=== PATIENT | female | born 1945 | race Asian ===

== ENCOUNTER → 2018-03-27 14:06 | Outpatient (CLI) | payer OTHER, SELFPAY ==
--- NOTE | 2018-03-27 14:07 | DI.RAD.S_ITS ---
PROCEDURE: XR CERVICAL SPINE 2V OR 3V INDICATIONS: left radiculopathy TECHNIQUE: 3 view(s) of the cervical spine were acquired. COMPARISON: None. FINDINGS: Bones: No fractures or dislocations to the T1 level. The lateral masses of C1 appear intact on the odontoid view. No suspicious bony lesions. The disc heights are well-preserved. Minimal endplate irregularity is seen. Soft tissues: No prevertebral soft tissue swelling. The visualized lung apices are unremarkable. IMPRESSION: Unremarkable imaging examination for age. Dictated by: William Luna M.D. on 03/27/2018 at 14:33 Approved by: William Luna M.D. on 03/27/2018 at 14:34
== END ==
PROVIDERS: PCP Family Medicine; Visit Provider Family Medicine
DX: M54.12 Radiculopathy, cervical region (principal)
CPT/HCPCS: 72040

== ENCOUNTER 2018-08-01 08:15 | Day surgery (SDC) | payer OTHER, SELFPAY ==
--- NOTE | 2018-08-01 | PATH_ITS ---
[facility] Accession Number: [id number] . 01 Material submitted: . PART A: ANTRAL BIOPSY PART B: GASTRIC POLYP . 02 Diagnosis: A. Stomach, Antrum, Biopsy: Antral mucosa with mild chronic gastritis. Negative for Helicobacter by immunohistochemistry. Negative for intestinal metaplasia. Negative for dysplasia and malignancy. . B. Stomach, Polyp, Biopsy: Fundic gland polyp. No evidence of Helicobacter on H/E stain. Negative for intestinal metaplasia. Negative for dysplasia and malignancy. [facility]/08/06/2018 . 02 Electronically signed: . Stephanie Veliz MD, Pathologist NPI- [id number] . 01 Gross description: . Part A: ANTRAL BIOPSY: Received in formalin are 2 fragment(s) of nagy, soft tissue measuring 0.5 x 0.3 x 0.2 cm to 0.4 x 0.3 x 0.3 cm submitted entirely in 1 cassette(s) Part B: GASTRIC POLYP: Received in formalin are 2 fragment(s) of nagy, soft tissue measuring 0.4 x 0.3 x 0.3 cm to 0.3 x 0.2 x 0.2 cm submitted entirely in 1 cassette(s) /CKI /CKI . 02 Microscopic: . A. An immunohistochemical stain was performed to evaluate for Helicobacter organisms and is negative. The control stain showed appropriate reactivity. . * This test was developed and its performance characteristics determined by [facility]. It has not been cleared or approved by the U.S. Food and Drug Administration. The FDA has determined that such clearance or approval is not necessary. This test is used for clinical purposes. It should not be regarded as investigational or for research. . 02 Pathologist provided ICD-10: R10.9 . 02 CPT . 373055, 925387, F81541 Performed at: 01 [facility] [address] [place] [address], [place], [place] [id number] MD Ayush Plascencia MD Phone: [phone] Performed at: 02 [facility] [address] [place], [place] [id number] MD Stephanie Veliz MD Phone: [phone]
[2018-08-01 09:05] VITALS: BP 122/63; PULSE 64; RESP 16; TEMP 36.6; O2SAT 100; BMI 24.6
[2018-08-01] MEDS: SODIUM CHLORIDE 0.9% 1,000 ML 200 ML IV (09:20)
--- NOTE | 2018-08-01 09:50 | PM.PREOP ---
Pre-operative Note Interval Note History & Physical reviewed/Exam performed by Physician: Yes Changes to H&P: No H&P completed within 30 days and has changed as indicated here:: Patient seen and examined. History physical examination from July 02, 2018 is on the chart and has not changed. Proceed with EGD today as planned. ASA Class (for procedural sedation): II
[2018-08-01] MEDS: LIDOCAINE 4% SOLN 50 ML 20 ML TOP (10:04)
[2018-08-01] MEDS: TETRACAINE/BENZOCAINE/BUTAMBEN (CETACAINE) BOTTLE 1 SPRAY TOP (10:05)
[2018-08-01] MEDS: fentaNYL 250 MCG/5 ML INJ IV (10:11)
[2018-08-01] MEDS: MIDAZOLAM 5 MG/5 ML VIAL IV (10:11)
--- NOTE | 2018-08-01 10:17 | P.OP.ENDO_ITS ---
Operative Date/Time/Diagnoses Date of procedure: 08/01/18 Time of procedure: 10:14 Pre-op diagnosis: Epigastric pain Post-op diagnosis: other (Gastric ulcers likely secondary to NSAID use, gastritis, and duodenitis) Procedure & Clinicians Study performed: 1. Sedation per surgeon 2. Esophagogastroduodenoscopy with cold forceps biopsies and polypectomy Same procedure as scheduled: Yes Indications: 73-year-old Turkish female who presented with epigastric pain and reflux symptoms. She was recommended to undergo EGD with potential biopsy. Surgeon: Car Monte Procedure Notes SCOAP/Timeout: Yes Procedure in detail: After obtaining informed consent, the patient was brought to the GI suite and placed in the left lateral decubitus position on the examination table. After placement of appropriate monitors, the patient was given incremental doses of Versed and Fentanyl until an appropriate level of sedation was achieved. A time out was held per SCOAP protocol. A bite block was gently placed between the patient's teeth. The endoscope was lubricated and then passed into the patient's posterior oropharynx. The esophagus was cannulated under direct vision and the scope was passed to the second portion of the duodenum without difficulty. The scope was then withdrawn with careful examination of all areas of the upper GI tract and mucosa. Z-line was located at 35 cm from the incisors and otherwise was grossly normal. In the stomach, the instrument was retroflexed and the GE junction examined. The scope was straightened and the procedure continued with examination of the remainder of the upper GI tract. Findings are noted above. Air was aspirated from the stomach and the endoscope gently removed from the esophagus. The patient was allowed to awaken from sedation without difficulty and taken to the post-anesthesia care unit in good condition. Scope withdrawal time: Not applicable Sedation minutes: 12 Findings: gastric ulcer (Multiple small punctate ulcers in the antrum consistent with NSAID use.), gastritis, polyp (Within the body of the stomach, subsequently removed) and other findings (Mild duodenitis but no duodenal ulcers ) Specimen(s): other (1. Antral biopsies 2. Gastric polyp) Complications: none Recommendations: Reflux diet, No ASA/NSAIDS and Continue medication(s) Plan for aftercare: 1. Discharge home 2. Follow up in surgery Clinic in 2 weeks Follow up: weeks (Two weeks with Dr. Monte) Disposition: PACU
[2018-08-01 10:20] VITALS: BP 127/62; PULSE 64; RESP 15; TEMP 36.6; O2SAT 97
[2018-08-01 10:25] VITALS: BP 106/68; PULSE 69; RESP 15; O2SAT 96
[2018-08-01 10:33] VITALS: BP 131/65; PULSE 59; RESP 15; TEMP 36.2; O2SAT 95
== END 2018-08-01 10:50 | disposition home or self-care (01) ==
PROVIDERS: Surgery; Family Provider Family Medicine; PCP Family Medicine; Visit Provider Specialist
PROC: 0DJ08ZZ Inspection of Upper Intestinal Tract, Via Natural or Artificial Opening Endoscopic (ICD-10-PCS; CPT 43235; principal; 2018-08-01 10:15)
DX: K29.70 Gastritis, unspecified, without bleeding (principal); K25.9 Gastric ulcer, unspecified as acute or chronic, without hemorrhage or perforation; K29.80 Duodenitis without bleeding; E11.9 Type 2 diabetes mellitus without complications; K21.9 Gastro-esophageal reflux disease without esophagitis
CPT/HCPCS: 43239; 99152; J2250; J3010

== ENCOUNTER → 2018-12-19 11:48 | Outpatient (CLI) | payer OTHER, SELFPAY ==
--- NOTE | 2018-12-19 11:49 | DI.MG.S_ITS ---
BILATERAL DIGITAL SCREENING MAMMOGRAM 3D/2D WITH CAD: 12/19/2018 CLINICAL: Routine screening. Comparison is made to exams dated: 09/19/2015 mammogram, 08/11/2013 mammogram, and 11/14/2010 mammogram - [facility]. There are scattered fibroglandular elements in both breasts. Current study was also evaluated with a Computer Aided Detection (CAD) system. No significant masses, calcifications, or other findings are seen in either breast. There has been no significant interval change. IMPRESSION: NEGATIVE There is no mammographic evidence of malignancy. A 1 year screening mammogram is recommended. This exam was interpreted at Station ID: [id number]. NOTE: For mammograms, a report in lay terms will be sent to the patient. Approximately 15% of breast malignancies will not be visualized mammographically. In the management of a palpable breast mass, a negative mammogram must not discourage biopsy of a clinically suspicious lesion. Electronically Signed By: Sam richard/aba:12/19/2018 18:43:32 letter sent: Normal Exam ACR BI-RADS Category 1: Negative 3341F
== END ==
PROVIDERS: Family Provider Family Medicine; PCP Family Medicine; Visit Provider Family Medicine
DX: Z12.31 Encounter for screening mammogram for malignant neoplasm of breast (principal)
CPT/HCPCS: 77063; 77067

== ENCOUNTER → 2019-04-10 15:07 | Outpatient (CLI) | payer OTHER, SELFPAY | PROVIDERS: PCP Family Medicine; Visit Provider Family Medicine | DX: M85.851 Other specified disorders of bone density and structure, right thigh (principal); Z78.0 Asymptomatic menopausal state; E11.9 Type 2 diabetes mellitus without complications | CPT/HCPCS: 77080 ==

== ENCOUNTER → 2021-05-19 12:18 | Outpatient (CLI) | payer OTHER, SELFPAY ==
--- NOTE | 2021-05-19 | DI.MG.S_ITS ---
BILATERAL DIGITAL SCREENING MAMMOGRAM 3D/2D WITH CAD: 05/19/2021 CLINICAL: Routine screening. Comparison is made to exams dated: 12/19/2018 mammogram - [facility] and 09/19/2015 mammogram - [facility]. There are scattered fibroglandular elements in both breasts. Current study was also evaluated with a Computer Aided Detection (CAD) system. No significant masses, calcifications, or other findings are seen in either breast. There has been no significant interval change. IMPRESSION: NEGATIVE There is no mammographic evidence of malignancy. A 1 year screening mammogram is recommended. This exam was interpreted at Station ID: [id number]. NOTE: For mammograms, a report in lay terms will be sent to the patient. Approximately 15% of breast malignancies will not be visualized mammographically. In the management of a palpable breast mass, a negative mammogram must not discourage biopsy of a clinically suspicious lesion. Electronically Signed By: Chas dale/aba:05/19/2021 13:07:14 letter sent: Normal Exam ACR BI-RADS Category 1: Negative 3341F
== END ==
PROVIDERS: PCP Family Medicine; Referring Provider Family Medicine; Visit Provider Family Medicine
DX: Z12.31 Encounter for screening mammogram for malignant neoplasm of breast (principal)
CPT/HCPCS: 77063; 77067

== ENCOUNTER → 2021-09-05 11:14 | Outpatient (CLI) | payer OTHER, SELFPAY ==
[2021-09-05 18:25] LABS: Creatinine Urine Random 17.6 mg/dL
[2021-09-05 18:58] LABS: Microalbumin Urine Random < 0.6 mg/dL (0-1.6)
== END ==
PROVIDERS: PCP Family Medicine; Visit Provider Family Medicine
DX: E11.9 Type 2 diabetes mellitus without complications (principal)
CPT/HCPCS: 82043; 82570

== ENCOUNTER → 2023-05-02 10:46 | Outpatient (CLI) | payer OTHER, SELFPAY ==
[2023-05-02 11:23] LABS: Hemoglobin A1C% w Est Avg Glu 7.4 % (4.0-6.0)
[2023-05-02 11:33] LABS: Aspartate Aminotransferase 26 IU/L (14-36); BUN Creatinine Ratio 25.3 (6-22); Blood Urea Nitrogen 19 mg/dL (7-17); Calcium 9.7 mg/dL (8.4-10.2); Carbon Dioxide 27 mmol/L (22-32); Chloride 103 mmol/L (98-107); Cholesterol 191 mg/dL (140-199); Estimated Glomerular Filt Rate > 60 mL/min (>60); Glucose 133 mg/dL (80-110); HDL Cholesterol 70 mg/dL (40-60); HEMOLYSIS < 15 (0-50); LDL Cholesterol Calculated 78 mg/dL (<100); Potassium 3.9 mmol/L (3.4-5.1); Sodium 140 mmol/L (137-145); Triglycerides 216 mg/dL (35-150)
== END ==
PROVIDERS: PCP Internal Medicine; Referring Provider Internal Medicine; Visit Provider Internal Medicine
DX: E11.69 Type 2 diabetes mellitus with other specified complication (principal); I10 Essential (primary) hypertension; E78.5 Hyperlipidemia, unspecified
CPT/HCPCS: 36415; 80048; 80061; 83036; 84450

== ENCOUNTER → 2023-08-21 11:07 | Outpatient (CLI) | payer OTHER, SELFPAY ==
--- NOTE | 2023-08-21 | DI.MG.S_ITS ---
BILATERAL DIGITAL SCREENING MAMMOGRAM 3D/2D WITH CAD: 08/21/2023 CLINICAL: Routine screening. Comparison is made to exams dated: 05/19/2021 mammogram, 12/19/2018 mammogram - [facility], and 09/19/2015 mammogram - [facility]. There are scattered areas of fibroglandular density in both breasts (category b / 25%-50% glandular tissue). Current study was also evaluated with a Computer Aided Detection (CAD) system. There are benign vascular calcifications in both breasts. No significant masses, calcifications, or other findings are seen in either breast. There has been no significant interval change. IMPRESSION: BENIGN There is no mammographic evidence of malignancy. A 1 year screening mammogram is recommended. Based on the Tyrer Cuzick model (a risk assessment model) the patient's lifetime risk is 2.0% and her 10 year risk is 0.0%. According to the ACR, ACS, and NCCN guidelines, an annual breast MRI exam along with mammogram is recommended if the patient's lifetime risk is 20% or greater. This exam was interpreted at Station ID: [id number]. NOTE: For mammograms, a report in lay terms will be sent to the patient. Approximately 15% of breast malignancies will not be visualized mammographically. In the management of a palpable breast mass, a negative mammogram must not discourage biopsy of a clinically suspicious lesion. Electronically Signed By: Marga madera/aba:08/21/2023 14:15:07 letter sent: Normal Exam ACR BI-RADS Category 2: Benign Finding(s) 3342F
== END ==
LOC: MAMMO 11:08
PROVIDERS: PCP Internal Medicine; Referring Provider Internal Medicine; Visit Provider Internal Medicine
DX: Z12.31 Encounter for screening mammogram for malignant neoplasm of breast (principal); R92.323 Mammographic fibroglandular density, bilateral breasts
CPT/HCPCS: 77063; 77067

== ENCOUNTER 2023-09-03 09:10 | Day surgery (SDC) | payer OTHER, SELFPAY ==
--- NOTE | 2023-09-03 | PATH_ITS ---
[facility] Accession Number: [id number] No. of containers..02 Tissue . 01 Material submitted: . PART A: gastrointestinal site - GASTRIC PART B: colon - TRANSVERSE POLYP . 01 Diagnosis: A. STOMACH, BIOPSY: Acute erosive gastritis. Negative for Helicobacter organisms by immunohistochemistry. Negative for intestinal metaplasia. Negative for dysplasia and malignancy. . B. TRANSVERSE COLON POLYP: Tubular adenoma. [facility] 09/11/2023 1151 Local . 01 Electronically signed: . Mlavin Wagner MD, PhD, Pathologist NPI- [id number] . 01 Gross description: . Part A: GASTRIC: Received in formalin are 2 fragment(s) of nagy, soft tissue measuring 0.1 x 0.1 x 0.1 cm in aggregate submitted entirely in 1 cassette(s) Part B: TRANSVERSE POLYP: Received in formalin are 2 fragment(s) of nagy, soft tissue measuring 0.1 x 0.1 x 0.1 cm to 0.3 x 0.3 x 0.2 cm submitted entirely in 1 cassette(s) /[facility] 09/05/2023 2042 Local . 01 Microscopic: . A. An immunohistochemical stain was performed to evaluate for Helicobacter organisms and is negative. The control stain showed appropriate reactivity. . . * This test was developed and its performance characteristics determined by [facility]. It has not been cleared or approved by the U.S. Food and Drug Administration. The FDA has determined that such clearance or approval is not necessary. This test is used for clinical purposes. It should not be regarded as investigational or for research. . 01 Pathologist provided ICD-10: K29.70, D12.3 . 01 CPT . 616243, 069467, N60193 Specimen Comment: A courtesy copy of this report has been sent to [phone] Performed at: 01 [facility] [address] [facility], [place], [place] [id number] MD Ayush Plascencia MD Phone: [phone]
--- NOTE | 2023-09-03 09:07 | PM.HP.1 ---
History of Present Illness History of Present Illness Date Patient Seen: 09/03/23 Time Patient Seen: 09:50 Chief complaint: SDC Narrative: 78-year-old woman here for screening EGD and colonoscopy. Her mother has a history of gastric cancer. No abdominal concerns today. [facility] Medical History Primary osteoarthritis involving multiple joints Osteopenia Family history of gastric cancer Essential hypertension (02/27/17) DM type 2 with diabetic dyslipidemia Hyperlipidemia associated with type 2 diabetes mellitus (02/27/17) Vision disorder Chicken pox (~1956) Hearing loss (~1971) GERD (gastroesophageal reflux disease) Surgical History Anesthesia (~1971) Surgical procedure planned (~1964) Family History Sister Age: 80 Colon cancer Sister Age: 83 Diabetes mellitus, type II Sister Age: 71 Diabetes mellitus, type II Brother No problems noted. Father Diabetes mellitus Mother No problems noted. Social History marital status: details: (Jonathan), 3 children, retired [employer] household members: spouse Smoking Status: Never smoker alcohol intake: current substance use type: does not use Meds Home Medications and Allergies Home Medications Medication Instructions Recorded Confirmed Type blood-glucose meter (Contour Meter) #1 ea 12/10/17 08/19/23 Rx blood sugar diagnostic (Contour #100 strips 03/29/23 08/19/23 Rx Next Test Strips) lancets 33 gauge (Micro Thin #100 ea 03/29/23 08/19/23 Rx Lancets) calcium carbonate 500 mg calcium 500 mg PO BID #0 tabs 05/02/23 08/19/23 History (1,250 mg) chewable tablet (Calci-Chew) lisinopril 10 mg tablet 10 mg PO DAILY #100 tabs 05/14/23 09/03/23 Rx lovastatin 10 mg tablet 10 mg PO DAILY #100 tabs 05/14/23 09/03/23 Rx metformin 1,000 mg tablet 1,000 mg PO BIDWMEAL #200 tabs 05/14/23 09/03/23 Rx Allergies Allergy/AdvReac Type Severity Reaction Status Date / Time No Known Drug Allergies Allergy Verified 09/03/23 09:29 Exam Narrative Exam Narrative: General thin elderly woman alert oriented no acute distress Chest nonlabored respiration Extremities warm well perfused Assessment & Plan Assessment & Plan narrative: 78-year-old woman family history of gastric cancer here for screening EGD and colonoscopy. Overview of the procedures discussed. Procedural risks including but not limited to hemorrhage, missed diagnosis, intestinal injury to reviewed. Questions have been answered she is in agreement with this plan and provides her consent to proceed.
[2023-09-03 09:38] VITALS: BP 137/76; PULSE 94; RESP 16; TEMP 36.4; O2SAT 100
[2023-09-03] MEDS: LACTATED RINGERS 1,000 ML 42 ML IV (09:45)
--- NOTE | 2023-09-03 09:51 | PM.OP.EC ---
Operative Date/Time/Diagnoses Date of procedure: 09/03/23 Time of procedure: 09:51 Pre-op diagnosis: Family history gastric cancer Colorectal screening Procedure & Clinicians Study performed: Screening Esophagogastroduodenoscopy and colonoscopy Same procedure as scheduled: Yes Indications: Family history of gastric cancer Colorectal screening Surgeon: Cornelio Latham Procedure Notes Procedure in detail: The history and physical was performed/updated and the patient is ASA class is 2. The procedure was discussed in detail with the patient. Potential risks complications including infection, bleeding, missed diagnosis, perforation, need for surgery, and were explained. Their questions were answered and informed consent was obtained. Patient placed in left lateral decubitus position. Time out was performed. Procedural sedation was administered by Anesthesia. A bite block was placed. the scope was inserted into the mouth and advanced through the esophagus and into the stomach. the pylorus was intubated and the duodenum was examined to the 2nd portion.. The scope was retroflexed within the stomach. The stomach was then decompressed and scope pulled back to the GE junction. The scope was then removed Examination began with a thorough inspection of the perianal area there was no evidence of fissures, fistulae, external hemorrhoids or cutaneous malignancy. The colonoscopy scope was then placed into the anal canal and was advanced to the cecum, which was identified by the ileocecal valve, the appendiceal orifice and the confluence of the taenia. The scope was then slowly withdrawn examining colon thoroughly in all directions, irrigating it of any residual stool. FINDINGS -mild gastritis no active hemorrhage. Biopsy of stomach taken with forceps. -transverse colon 3 mm polyp removed with biopsy forceps. The patient tolerated the procedure well. They will be discharged once criteria are met. The prep was of good/excellent quality. The withdrawl time was 6 minutes. Specimen(s): other (Gastric, transverse colonic polyp) Impression: Colonic polyp x1 Mild gastritis Post-procedure Plan for aftercare: Follow-up is dependent on pathology finding Start Pepcid once daily Disposition: same day surgery
[2023-09-03 10:20] VITALS: BP 99/58; PULSE 88; RESP 21; TEMP 37; O2SAT 96
[2023-09-03 10:25] VITALS: BP 109/57; PULSE 87; RESP 17; TEMP 36.9; O2SAT 96
[2023-09-03 10:30] VITALS: BP 105/75; PULSE 92; RESP 20; TEMP 36.9; O2SAT 97
[2023-09-03 10:36] VITALS: BP 114/59; PULSE 80; RESP 21; O2SAT 99
== END 2023-09-03 10:49 | disposition home or self-care (01) ==
PROVIDERS: PCP Internal Medicine; Referring Provider Surgery; Visit Provider Surgery
PROC: 0DJ08ZZ Inspection of Upper Intestinal Tract, Via Natural or Artificial Opening Endoscopic (ICD-10-PCS; CPT 43235; principal; 2023-09-03 09:45)
PROC: 0DJD8ZZ Inspection of Lower Intestinal Tract, Via Natural or Artificial Opening Endoscopic (ICD-10-PCS; CPT 45378; 2023-09-03 09:45)
DX: Z12.11 Encounter for screening for malignant neoplasm of colon (principal); Z80.0 Family history of malignant neoplasm of digestive organs; D12.3 Benign neoplasm of transverse colon; K29.00 Acute gastritis without bleeding
CPT/HCPCS: 45380; 43239; J2704

== ENCOUNTER → 2023-11-11 14:26 | Outpatient (CLI) | payer OTHER, SELFPAY ==
[2023-11-11 15:39] LABS: BUN Creatinine Ratio 28.6 (6-22); Blood Urea Nitrogen 20 mg/dL (7-17); Calcium 9.4 mg/dL (8.4-10.2); Carbon Dioxide 29 mmol/L (22-32); Chloride 107 mmol/L (98-107); Estimated Glomerular Filt Rate > 60 mL/min (>60); Glucose 165 mg/dL (80-110); HEMOLYSIS < 15 (0-50); Sodium 141 mmol/L (137-145)
[2023-11-11 15:43] LABS: Hemoglobin A1C% w Est Avg Glu 7.7 % (4.0-6.0)
[2023-11-11 16:12] LABS: Creatinine Urine Random 73.8 mg/dL
[2023-11-11 16:17] LABS: Microalbumi Creatinin Ratio Ur 58.2 ug/mg CR (<30); Microalbumin Urine Random 4.3 mg/dL (0-1.6)
== END ==
PROVIDERS: PCP Internal Medicine; Referring Provider Internal Medicine; Visit Provider Internal Medicine
DX: I10 Essential (primary) hypertension (principal); E11.69 Type 2 diabetes mellitus with other specified complication; E78.5 Hyperlipidemia, unspecified
CPT/HCPCS: 36415; 80048; 82043; 82570; 83036

== ENCOUNTER → 2024-05-22 10:09 | Outpatient (CLI) | payer OTHER, SELFPAY ==
[2024-05-22 11:48] LABS: Hemoglobin A1C% w Est Avg Glu 7.5 % (4.0-6.0)
[2024-05-22 11:55] LABS: BUN Creatinine Ratio 22.2 (6-22); Blood Urea Nitrogen 18 mg/dL (7-17); Calcium 10.1 mg/dL (8.4-10.2); Carbon Dioxide 28 mmol/L (22-32); Chloride 103 mmol/L (98-107); Estimated Glomerular Filt Rate > 60 mL/min (>60); Glucose 140 mg/dL (80-110); HEMOLYSIS < 15 (0-50); Potassium 4.2 mmol/L (3.4-5.1); Sodium 140 mmol/L (137-145)
[2024-05-22 12:00] LABS: Creatinine Urine Random 55.99 mg/dL
[2024-05-22 12:05] LABS: Microalbumin Urine Random 1.3 mg/dL (0-1.6)
== END ==
LOC: LAB 10:10
PROVIDERS: PCP Internal Medicine; Referring Provider Internal Medicine; Visit Provider Internal Medicine
DX: E11.69 Type 2 diabetes mellitus with other specified complication (principal); E78.5 Hyperlipidemia, unspecified; I10 Essential (primary) hypertension
CPT/HCPCS: 36415; 80048; 82043; 82570; 83036

== ENCOUNTER → 2024-06-08 13:46 | Outpatient (CLI) | payer OTHER, SELFPAY ==
--- NOTE | 2024-06-08 13:48 | DI.RAD.S_ITS ---
PROCEDURE: XR DEXA AXIAL SKELETON INDICATIONS: osteopenia COMPARISON: [facility], ELIANE, XR DEXA AXIAL SKELETON, 04/10/2019, 15:52. FINDINGS: Lumbar Spine: Bone mineral density 0.890 g/cm2, T score -1.4, compared to -1.1. Left Hip: Bone mineral density 0.822 g/cm2, T score -1.0, compared to -0.7. Left Femoral Neck: Bone mineral density 0.633 g/cm2, T score -1.9, compared to -1.4. Right Hip: Bone mineral density 0.843 g/cm2, T score -0.8, compared to -0.3. Right Femoral Neck: Bone mineral density 0.634 g/cm2, T score -1.9, compared to -1.7. Fracture Risk Calculation (when applicable): 10-year fracture risk of a major osteoporotic fracture 8.2 percent and of a hip fracture 2.3 percent. (T score greater or equal to -1.0 to: NORMAL) (T score from -1.1 to -2.4: OSTEOPENIA) (T score less than or equal to -2.5: OSTEOPOROSIS) IMPRESSION: Moderate osteopenia within the femoral necks bilaterally, progressive. Follow-up guidelines as follows: Osteoporosis: Consider a repeat DEXA and Vertebral Fracture Assessment (VFA) exam in 2 years or sooner if medically necessary, to reassess this patient's status. Osteopenia: Consider a repeat DEXA in 2-3 years to reassess this patient's status, or if there is a new clinical indication. Normal: Consider a repeat DEXA in 5 years or sooner, or if there is a new clinical indication. All treatment decisions require clinical judgment and consideration of individual patient factors, including patient preferences, comorbidities, previous drug use, risk factors not captured in the FRAX model (e.g., frailty, falls, vitamin D deficiency, increased bone turnover, interval significant decline in bone density ) and possible under- or over-estimation of fracture risk by FRAX. In addition, the NOF Guide recommends that FDA-approved medical therapies be considered in postmenopausal women and men age >= 50 years with a: * Hip or vertebral (clinical or morphometric) fracture * T-score of <=-2.5 at the spine or hip * Ten-year fracture probability by FRAX of >= 3% for hip fracture or >=20% for major osteoporotic fracture. People with diagnosed cases of osteoporosis or at high risk for fracture should have regular bone mineral density tests. For patients eligible for Medicare, routine testing is allowed once every 2 years. The testing frequency can be increased to one year for patients who have rapidly progressing disease, those who are receiving or discontinuing medical therapy to restore bone mass, or have additional risk factors. Dictated by: Mechelle Fisher M.D. on 06/08/2024 at 23:01 Approved by: Mechelle Fisher M.D. on 06/08/2024 at 23:03
== END ==
PROVIDERS: PCP Internal Medicine; Referring Provider Internal Medicine; Visit Provider Internal Medicine
DX: M85.89 Other specified disorders of bone density and structure, multiple sites (principal)
CPT/HCPCS: 77080

== ENCOUNTER → 2024-11-17 12:13 | Outpatient (CLI) | payer OTHER, SELFPAY ==
[2024-11-17 13:21] LABS: Hemoglobin A1C% w Est Avg Glu 6.6 % (4.0-6.0)
[2024-11-17 14:10] LABS: Aspartate Aminotransferase 34 IU/L (14-36); Blood Urea Nitrogen 20 mg/dL (7-17); Calcium 10.1 mg/dL (8.4-10.2); Carbon Dioxide 25 mmol/L (22-32); Chloride 102 mmol/L (98-107); Cholesterol 172 mg/dL (140-199); Estimated Glomerular Filt Rate > 60 mL/min (>60); Glucose 148 mg/dL (70-99); HDL Cholesterol 74 mg/dL (40-60); HEMOLYSIS < 15 (0-50); LDL Cholesterol Calculated 83 mg/dL (<100); Potassium 4.5 mmol/L (3.4-5.1); Sodium 138 mmol/L (137-145); Triglycerides 73 mg/dL (35-150)
== END ==
PROVIDERS: PCP Internal Medicine; Referring Provider Internal Medicine; Visit Provider Internal Medicine
DX: E11.69 Type 2 diabetes mellitus with other specified complication (principal); I10 Essential (primary) hypertension; E78.5 Hyperlipidemia, unspecified
CPT/HCPCS: 36415; 80048; 80061; 83036; 84450